=== PATIENT | male | born 1950 | race Caucasian/White ===

== ENCOUNTER 2016-07-20 08:22 | Day surgery (SDC) | payer OTHER, MEDICARE ==
[~2016-07-20 08:22] MED LIST: ALPR0.254 PO; APIX5TAB PO; ASPI-482 PO; ATOR20TA58 PO; CARV12.52 PO; CARV25TA PO; CARV3.12 PO; FENTANYL PF 100 MCG/2 ML VIAL. IV PRN; FURO40TA4 PO; HYDROMORPHONE 2 MG/ML VIAL. IV PRN; ISOS30TA4 PO; IV RINGERS,LACTATED 1000ML 1,000 ML IV SCH; LIDOCAINE 1% 1 ML SYRINGE. ID PRN; LOSA50TA6 PO; METF10002 PO; MORPHINE SULFATE 2 MG/ML DISP.SYRIN. IV PRN; ONDANSETRON PF 4 MG/2 ML VIAL. IV PRN; POTA20TA12 PO; PROCHLORPERAZINE 10 MG/2 ML VIAL. IV PRN; SIMV40TA3 PO
--- NOTE | 2016-07-20 09:14 | EKG ---
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
[2016-07-20] MEDS ORDERED: LIDOCAINE 2% 100 MG/5 ML DISP.SYRIN. ONE (09:17)
[2016-07-20] MEDS ORDERED: PROPOFOL 40 ML IV ONE (09:17)
[2016-07-20] MEDS ORDERED: IV RINGERS,LACTATED 1000ML 1,000 ML IV SCH (10:00)
[2016-07-20 10:13] LABS: CREATININE 0.9 mg/dL (0.7-1.3); GFR 84.2; POTASSIUM 4.7 mmol/L (3.5-5.1)
[2016-07-20 10:16] LABS: CALCIUM 8.9 mg/dL (8.5-10.1)
--- NOTE | 2016-07-20 10:35 | EKG ---
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
[2016-07-20 11:19] VITALS: BP 136/78
== END 2016-07-20 11:51 | disposition home or self-care (01) ==
LOC: SURG 08:22
PROVIDERS: ATTEND Internal Medicine Cardiovascular Disease
DX: R94.31 Abnormal electrocardiogram [ECG] [EKG] (principal); E78.00 Pure hypercholesterolemia, unspecified; I10 Essential (primary) hypertension; I48.91 Unspecified atrial fibrillation; E66.9 Obesity, unspecified; E11.9 Type 2 diabetes mellitus without complications; Z86.73 Personal history of transient ischemic attack (TIA), and cerebral infarction without residual deficits; Z86.14 Personal history of Methicillin resistant Staphylococcus aureus infection
CPT/HCPCS: 36415; 80048; 83735; 92960; 93005; 93308; J2704

== ENCOUNTER → 2016-10-07 | Outpatient (CLI) | payer MEDICARE, OTHER ==
[~2016-10-07] MED LIST changes: -FENTANYL PF 100 MCG/2 ML VIAL. IV PRN; -HYDROMORPHONE 2 MG/ML VIAL. IV PRN; -IV RINGERS,LACTATED 1000ML 1,000 ML IV SCH; -LIDOCAINE 1% 1 ML SYRINGE. ID PRN; +METF-620 PO; -METF10002 PO; -MORPHINE SULFATE 2 MG/ML DISP.SYRIN. IV PRN; -ONDANSETRON PF 4 MG/2 ML VIAL. IV PRN; -PROCHLORPERAZINE 10 MG/2 ML VIAL. IV PRN
--- NOTE | 2016-10-07 16:59 | RESP ---
DATE OF SERVICE: 10/07/2016 ATTENDING PHYSICIAN: Dr. Rao. The patient's FVC was 3.0 which was 80% of predicted. FEV1 was 2.45 which is 89% of predicted. The FEV1/FVC ratio was normal. FEF 25-75 was 129% of predicted. Total lung capacity was 77% of predicted. There was no response to bronchodilators. Diffusion capacity was normal. IMPRESSION: 1. No significant obstructive airway disease. 2. Mild restrictive lung disease seen on lung volumes. 3. No response to bronchodilators. 4. Normal diffusion capacity. RACHAEL ADAM MD DR: CELINA/laverne JOB#: [id number] / [id number] CAROLINE Moore MD
== END | disposition home or self-care (01) ==
LOC: PF 07:42
PROVIDERS: ATTEND Internal Medicine Cardiovascular Disease
DX: I48.91 Unspecified atrial fibrillation (principal)
CPT/HCPCS: 36415; 84443; 94060; 94729